=== PATIENT | female | born 1970 | race Caucasian/White ===

== ENCOUNTER → 2022-06-25 | Outpatient (CLI) | payer OTHER ==
--- NOTE | 2022-06-25 11:55 | XR ---
EXAMINATION TYPE: XR KUB DATE OF EXAM: 06/25/2022 COMPARISON: None INDICATION: Right renal calculus TECHNIQUE: Single view abdomen upright view FINDINGS: There is a normal bowel gas pattern. L3 delivery is:. Psoas margins are normal. No organomegaly is present. No suspicious renal or ureteral stones identified. IMPRESSION: 1. Unremarkable Abdomen
--- NOTE | 2022-06-25 11:56 | US ---
EXAMINATION TYPE: US kidneys/renal and bladder DATE OF EXAM: 06/25/2022 COMPARISON: NONE CLINICAL HISTORY: N20.1 CALCULUS OF URETER. Patient states having right flank pain in April. No pa in now. No history of renal stones. EXAM MEASUREMENTS: Right Kidney: 10.6 x 5.2 x 4.8 cm Left Kidney: 11.6 x 4.9 x 5.3 cm Right Kidney: No hydronephrosis or masses seen Left Kidney: No hydronephrosis or masses seen Bladder: moderately distended, anechoic Bilateral Jets seen IMPRESSION: No acute abnormality renal ultrasound
== END | disposition home or self-care (01) ==
LOC: RADUSWWP 10:32
PROVIDERS: ATTEND Urology
DX: N13.2 Hydronephrosis with renal and ureteral calculous obstruction (principal)
CPT/HCPCS: 74018; 76770

== ENCOUNTER → 2023-05-04 | Outpatient (CLI) | payer BC | END | disposition home or self-care (01) | LOC: LABWHC1 14:56 | PROVIDERS: ATTEND Internal Medicine Critical Care Medicine | DX: D86.9 Sarcoidosis, unspecified (principal) | CPT/HCPCS: 36415; 81050; 82164 ==